=== PATIENT | female | born 1980 | race Hispanic/Latino ===

== ENCOUNTER 2018-04-13 11:04 | Emergency (ER) | payer OTHER ==
[2018-04-13] MEDS ORDERED: KETOROLAC TROMETHAMINE 60 MG/2 ML VIAL ONE (12:19)
[2018-04-13] MEDS ORDERED: ORPHENADRINE CITRATE 30 MG/ML ML ONE (12:19)
== END 2018-04-13 12:54 | disposition home or self-care (01) ==
LOC: EDH 11:04
DX: S13.9XXA Sprain of joints and ligaments of unspecified parts of neck, initial encounter (principal); Z90.49 Acquired absence of other specified parts of digestive tract; Z98.51 Tubal ligation status; V49.49XA Driver injured in collision with other motor vehicles in traffic accident, initial encounter; Y93.89 Activity, other specified; Y92.410 Unspecified street and highway as the place of occurrence of the external cause; Y99.8 Other external cause status
CPT/HCPCS: 72040; 96372 ×2; 99283; J1885; J2360

== ENCOUNTER 2021-08-11 09:34 | Emergency (ER) | payer OTHER ==
[~2021-08-11] VITALS: Ht 175.3 cm; Wt 127.0 kg
[2021-08-11] MEDS ORDERED: 0.9%NACL 1000ML 1,000 ML IV ONE (09:50)
[2021-08-11 09:53] LABS: HEMATOCRIT 25.8 % (36-48); MEAN CORPUSCULAR HEMOGLOBIN 19.2 pg (27.0-33.0); MEAN CORPUSCULAR HGB CONC 28.3 g/dL (32.0-36.0); MEAN CORPUSCULAR VOLUME 67.7 fL (79-99); PLATELET COUNT (AUTO) 382 K/uL (130-400); RED BLOOD CELL COUNT(AUTO) 3.81 MIL/uL (4.00-5.50); RED CELL DISTRIBUTION WIDTH 16.1 % (11.0-15.5); WHITE BLOOD COUNT (AUTO) 6.9 K/uL (4.8-10.8)
[2021-08-11] MEDS ORDERED: 0.9%NACL 1000ML 1,000 ML IV SCH (10:00)
[2021-08-11 10:01] LABS: CREATININE 0.9 mg/dL (0.5-1.5); POTASSIUM 4.2 mmol/L (3.5-5.1)
[2021-08-11 10:05] LABS: APPEARANCE,URINE Turbid (CLEAR); BILIRUBIN,URINE Small (NEGATIVE); COLOR,URINE Orange (YELLOW); GLUCOSE, URINE (UA) Negative (NEGATIVE); KETONES,URINE Trace mg/dL (NEGATIVE); LEUKOCYTE ESTERASE ,URINE Small (NEGATIVE); NITRATE,URINE Negative (NEGATIVE); OCCULT BLOOD,URINE Large (NEGATIVE); PH,URINE 5.5 (5.0-8.0); PROTEIN,URINE 300 mg/dL (NEGATIVE)
[2021-08-11 10:06] LABS: ALBUMIN 3.5 g/dL (3.5-5.0); BILIRUBIN,TOTAL 0.2 mg/dL (0.2-1.0); TOTAL PROTEIN, SERUM 7.5 g/dL (6.0-8.3)
[2021-08-11 10:30] LABS: RBC,URINE 51-100 /HPF (0-1)
[2021-08-11 10:31] LABS: BACTERIA,URINE Moderate /HPF (None Seen); SQUAMOUS EPITHELIAL CELL,UR 0-2 /HPF (0-2)
[2021-08-11 10:58] VITALS: BP 117/66
[2021-08-11 11:05] LABS: BAND NEUTROPHILS % (MANUAL) 1 % (0-2); EOSINOPHILS % (MANUAL) 1 % (1-6); LYMPHOCYTES % (MANUAL) 18 % (22-44); MAN.DIFF COMMENT-IMPRESSION MANUAL DIFFERENTIAL; MONOCYTES % (MANUAL) 4 % (2-9); PLATELET MORPHOLOGY COMMENT ADEQUATE; SEGMENTED NEUTROPHILS % 76 % (40-70)
[2021-08-11] MEDS ORDERED: CEPH500B PO (12:00)
[2021-08-11] MEDS ORDERED: CEPHALEXIN 500 MG CAPSULE PO ONE (12:00)
[2021-08-11] MEDS ORDERED: D-ME118S47 PO (12:00)
[2021-08-11] MEDS ORDERED: IBUP-2070 PO (12:00)
[2021-08-11] MEDS ORDERED: FERR324T4 PO (12:02)
== END 2021-08-11 12:34 | disposition home or self-care (01) ==
LOC: EDH 09:34
DX: U07.1 COVID-19 (principal); D50.9 Iron deficiency anemia, unspecified; Z90.49 Acquired absence of other specified parts of digestive tract
CPT/HCPCS: 36415; 80053; 81001; 85025; 87088; 87635; 87804 ×2; 93005; 99284; C9803; J7030